=== PATIENT | male | born 1960 | race Caucasian/White ===

== ENCOUNTER 2022-09-07 14:39 | Emergency (ER) | payer OTHER ==
[~2022-09-07] VITALS: Ht 167.6 cm; Wt 77.1 kg
[2022-09-07] MEDS ORDERED: KETOROLAC TROMETHAMINE 15 MG INJ ONE (15:09)
[2022-09-07 15:15] LABS: *BILIRUBIN,URIN NEGATIVE (NEGATIVE); *BLOOD, URINE NEGATIVE (NEGATIVE); *CLARITY,URINE CLEAR (CLEAR); *COLOR,URINE YELLOW (YELLOW); *KETONES,URINE NEGATIVE (NEGATIVE); *UROBILINOGEN,URINE 0.2 E.U./dl (NORMAL); LEUKOCYTE ESTERASE ,URINE NEGATIVE (NEGATIVE); NITRITE, URINE NEGATIVE (NEGATIVE)
[2022-09-07] MEDS ORDERED: KETOROLAC TROMETHAMINE 15 MG INJ IVP ONE (15:15)
[2022-09-07 15:16] LABS: UGLUCOSE 3+ (NEGATIVE)
[2022-09-07 15:35] LABS: HEMATOCRIT 43.7 % (36.7-47.1); MEAN CORPUSCULAR HEMOGLOBIN 28.9 uug (23.8-33.4); MEAN CORPUSCULAR VOLUME 87.2 fL (73.0-96.2); PLATELET COUNT (AUTO) 250 K/uL (152-348)
[2022-09-07 15:40] LABS: BACTERIA,URINE NONE SEEN /HPF (NONE SEEN); RBC,URINE 0-3 /HPF (0-3); SQUAMOUS EPITHELIAL CELL,UR FEW /HPF (NONE SEEN); WBC,URINE NONE SEEN /HPF (0-3)
[2022-09-07 16:05] LABS: BILIRUBIN,DIRECT 0.1 mg/dL (0.0-0.2); BILIRUBIN,TOTAL 0.4 mg/dL (0.2-1.0); TOTAL PROTEIN, SERUM 6.5 g/dL (6.4-8.2)
[2022-09-07] MEDS ORDERED: NAPR-1009 PO (16:21)
[2022-09-07] MEDS ORDERED: CYCL10TA9 PO (16:21)
[2022-09-07 16:24] LABS: POTASSIUM 4.4 mmol/L (3.5-5.1)
--- NOTE | 2022-09-07 16:27 | NUR ---
IV removed. Catheter intact and site benign. Pressure and 4x4 gauze applied to site. No bleeding noted. Patient was discharge to home in stable condition with steady gait. All belongings were handed to patient before leaving. Verbal and written discharge instructions were given to patient. Patient verbalized understanding and compliance and will follow-up with primary doctor and the recommended specialist if needed. Stressed follow-up and to return to ER for worsening s/sx were emphasized. Copies of all the tests' results were also given to patient.
[2022-09-07 16:28] VITALS: BP 100/60
== END 2022-09-07 16:41 | disposition home or self-care (01) ==
LOC: ER 14:39
DX: R10.9 Unspecified abdominal pain (principal); M54.50 Low back pain, unspecified; E11.9 Type 2 diabetes mellitus without complications; I10 Essential (primary) hypertension
CPT/HCPCS: 99284; 74176; 80076; 80048; 81001; 83690; 85025; 36415; J1885; A4663